=== PATIENT | male | born 1925 | race Caucasian/White ===

== ENCOUNTER → 2016-04-17 | Day surgery (SDC) | payer MEDICARE, BC ==
[~2016-04-17] MED LIST: BUPIVACAINE/EPINEPHRINE 0.25% PF 10 ML VIAL ONE; LACTATED RINGER'S 1000 ML INJ 1,000 ML ONE; LIDOCAINE 1%/EPINEPHrine 1:100,000 SOLN 20 ML VIAL ONE; NEOMYCIN/POLYMYXIN/BACITRACIN OINT 15 GM TUBE ONE; PROPOFOL 200 MG/20 ML AMP IV ONE
--- NOTE | 2016-04-17 12:31 | TN ---
cc: JESS ARCHIBALD M.D. DATE OF SURGERY: 04/17/2016 PREOPERATIVE DIAGNOSIS Symptomatic 3 cm scalp mass. POSTOPERATIVE DIAGNOSIS 1. Symptomatic 3 cm scalp mass. 2. 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 PROCEDURE PERFORMED Excision 3 cm soft tissue mass, scalp. SURGEON Jess Archibald ANESTHESIA LMA with local. COMPLICATIONS None. INDICATION FOR PROCEDURE Mr. Reyse is a very pleasant 89-year-old gentleman who had a symptomatic enlarging mass on the dome of his scalp. It was causing him pain when he would comb his hair or bump into things. It was enlarging and he came in and asked that it be excised. Risks and benefits of excision was discussed with him and he was agreeable. DETAILS OF PROCEDURE The patient was brought to the operating room and placed supine on the operating table. After adequate general anesthesia was achieved with an LMA the top of the scalp was prepped and draped in a standard surgical fashion. 0.25% Marcaine was injected circumferentially around the mass. An elliptical skin incision was made to excise the overlying skin over the mass. Subcutaneous tissue was dissected with sharp dissection. The mass was well-encapsulated and dissected away from surrounding tissue without significant difficulty. The mass was excised in toto and sent to pathology. The wound was then copiously irrigated with normal saline solution. Hemostasis was assured using electrocautery Bovie. The wound was then rinsed out with warm saline solution and additional local anesthetic. The wound was then closed in two layers using 3-0 Vicryl for the subcutaneous tissue and 4-0 nylon for the skin. Sterile dressings were applied and the patient was awakened and brought to Recovery in stable condition. MD TYRONE Barrera/DOUGLAS /12:11 PM /12:15 PM
== END | disposition home or self-care (01) ==
LOC: ESDC 09:17
PROVIDERS: ATTEND Surgery Trauma Surgery
DX: L72.3 Sebaceous cyst (principal)
CPT/HCPCS: 00300; 11423; 88304; J3010; J7120; 88305